=== PATIENT | male | born 1935 | race Caucasian/White ===

== ENCOUNTER 2016-10-14 13:12 | Emergency (ER) | payer MEDICARE, MEDICAID ==
[~2016-10-14] VITALS: Ht 177.8 cm; Wt 73.0 kg
[~2016-10-14 13:12] MED LIST: ASPI-1073 PO; CARV6.2548 PO; CLOP75TA33 PO; GLV25 PO; HYDROMORPHONE; LISI10TA5 PO; METAMUCIL PO; SIMV40TA5 PO; [UNRECOGNIZED DRUG - CODE] PO
[2016-10-14 13:37] VITALS: BP 165/69
== END 2016-10-14 14:35 | disposition home or self-care (01) ==
LOC: ER 13:48
DX: S00.412A Abrasion of left ear, initial encounter (principal); Z79.899 Other long term (current) drug therapy; Z79.82 Long term (current) use of aspirin; E78.00 Pure hypercholesterolemia, unspecified; I10 Essential (primary) hypertension; Z87.891 Personal history of nicotine dependence; W22.8XXA Striking against or struck by other objects, initial encounter; Y93.89 Activity, other specified; Y99.9 Unspecified external cause status; Y92.89 Other specified places as the place of occurrence of the external cause
CPT/HCPCS: 99281; 99283

== ENCOUNTER 2022-04-26 16:08 | Inpatient (IN) | payer MEDICARE, MEDICAID ==
[~2022-04-26] VITALS: Ht 165.1 cm; Wt 68.0 kg
[~2022-04-26 16:08] MED LIST changes: -ASPI-1073 PO; +ASPI-1497 PO; +ATOR-2 PO; -CLOP75TA33 PO; +GABA-532 PO; -GLV25 PO; -HYDROMORPHONE; +INSU300I SQ; +LISI10TA26 PO; -LISI10TA5 PO; -METAMUCIL PO; +METF-416 PO; -SIMV40TA5 PO; +TICA90TA PO; -[UNRECOGNIZED DRUG - CODE] PO
[2022-04-26] MEDS ORDERED: ONDANSETRON HCL 4MG/2ML INJ IV ONE (22:30)
[2022-04-26 23:12] LABS: BASOPHILS % 0.4 % (0.0-2.0); EOSINOPHILS % 1.1 % (0.0-5.0); HEMATOCRIT. 28.2 % (42.0-52.0); HEMOGLOBIN. 9.5 g/dL (14.0-18.0); LYMPHOCYTES % 16.8 % (20.0-50.0); MEAN CORPUSCULAR HEMOGLOBIN 29.5 pg (28.0-32.0); MEAN CORPUSCULAR VOLUME 87.7 fL (80.0-94.0); MEAN PLATELET VOLUME 7.7 fl (7.4-10.4); MONOCYTES % 7.2 % (2.0-8.0); NEUTROPHILS % 74.5 % (40.0-76.0); PLATELET 247 x1000/uL (130-400); RED BLOOD CELL COUNT 3.21 mill/uL (4.7-6.1); RED CELL DISTRIBUTION WIDTH 13.7 % (11.6-14.6)
[2022-04-26] MEDS ORDERED: MAGNESIUM/ALUMINUM HYDROXIDE/SIMETHICONE 30ML UDC PO ONE (23:15)
[2022-04-26 23:37] LABS: CHLORIDE 106 mEq/L (98-107); ETHANOL BLOOD < 10 mg/dL
[2022-04-27] MEDS: ACETAMINOPHEN 325MG TABLET PO NR ×2 (00:02→01:46)
[2022-04-27] MEDS ORDERED: AMOXICILLIN/POTASSIUM CLAVULANATE 875/125MG TAB PO NR (00:45)
[2022-04-27] MEDS ORDERED: CEFTRIAXONE 1 G PREMIX 50 ML IV NR (00:45)
[2022-04-27] MEDS ORDERED: SODIUM CHLORIDE 0.9% 1,000 ML IV ONE (01:15)
[2022-04-27] MEDS ORDERED: ONDANSETRON HCL 4MG/2ML INJ IV PRN (05:00)
[2022-04-27] MEDS ORDERED: ACETAMINOPHEN 325MG TABLET PO PRN (05:00)
[2022-04-27] MEDS ORDERED: DEXTROSE 50% WATER 50ML SYRINGE IV PRN (05:00)
[2022-04-27] MEDS ORDERED: CEFTRIAXONE 1 G PREMIX 50 ML IV SCH (05:00)
[2022-04-27] MEDS ORDERED: SODIUM CHLORIDE 0.9% 1,000 ML IV SCH (05:00)
[2022-04-27 05:25] VITALS: BP 147/47
[2022-04-27] MEDS ORDERED: CARV12.545 MT (05:46)
[2022-04-27] MEDS ORDERED: AMLO5TAB88 PO (05:50)
[2022-04-27] MEDS ORDERED: ATOR40TA70 PO (05:50)
[2022-04-27] MEDS ORDERED: GABA-532 PO (05:50)
[2022-04-27] MEDS ORDERED: FERR325T6 MT (05:50)
[2022-04-27] MEDS ORDERED: TAMS-11 PO (05:50)
[2022-04-27] MEDS: GABAPENTIN 300MG CAPSULE PO SCH ×3 (06:34→21:10)
[2022-04-27] MEDS: BLOOD SUGAR DIAGNOSTIC STRIP TEST SCH ×4 (06:37→20:17)
[2022-04-27 08:00] VITALS: BP 125/47
[2022-04-27] MEDS ORDERED: AMOXICILLIN/POTASSIUM CLAVULANATE 875/125MG TAB PO SCH (09:00)
[2022-04-27] MEDS: CARVEDILOL 12.5MG TABLET PO SCH ×3 (09:00→20:14)
[2022-04-27] MEDS: AMLODIPINE 5MG TABLET PO SCH ×2 (09:00→09:07)
[2022-04-27] MEDS: FERROUS SULFATE 325MG TABLET PO SCH (09:05)
[2022-04-27] MEDS: FOLIC ACID/VITAMIN B COMP W-C TABLET PO SCH (09:05)
[2022-04-27] MEDS: ASPIRIN 81MG TABLET PO SCH (09:05)
[2022-04-27] MEDS: LISINOPRIL 20MG TABLET PO SCH ×2 (09:08→18:18)
[2022-04-27] MEDS: INSULIN LISPRO 100 UNITS/ML SUBCUT SCH ×4 (09:10→20:16)
[2022-04-27 12:00] VITALS: BP 146/43
[2022-04-27 16:00] VITALS: BP 156/41
[2022-04-27] MEDS ORDERED: AZITHROMYCIN 500MG in DEXTROSE 5% WATER 250ML IV SCH (16:00)
[2022-04-27 20:00] VITALS: BP 143/46
[2022-04-27] MEDS: TAMSULOSIN HCL 0.4MG SR CAPSULE PO SCH (20:14)
[2022-04-27] MEDS: ATORVASTATIN CALCIUM 40MG TABLET PO SCH (20:14)
[2022-04-28] VITALS: BP 99/45
[2022-04-28] MEDS: CEFTRIAXONE 1,000 MG in DEXTROSE 5% WATER 50 ML IV SCH (01:03)
[2022-04-28 04:00] VITALS: BP 130/44
[2022-04-28] MEDS: BLOOD SUGAR DIAGNOSTIC STRIP TEST SCH ×4 (05:39→21:31)
[2022-04-28] MEDS: GABAPENTIN 300MG CAPSULE PO SCH ×3 (05:39→21:28)
[2022-04-28 08:00] VITALS: BP 165/41
[2022-04-28] MEDS: FOLIC ACID/VITAMIN B COMP W-C TABLET PO SCH (08:14)
[2022-04-28] MEDS: ASPIRIN 81MG TABLET PO SCH (08:14)
[2022-04-28] MEDS: CARVEDILOL 12.5MG TABLET PO SCH ×2 (08:14→21:25)
[2022-04-28] MEDS: FERROUS SULFATE 325MG TABLET PO SCH (08:14)
[2022-04-28] MEDS: INSULIN LISPRO 100 UNITS/ML SUBCUT SCH ×4 (08:15→21:25)
[2022-04-28] MEDS: LISINOPRIL 20MG TABLET PO SCH ×2 (08:15→17:55)
[2022-04-28] MEDS: AMLODIPINE 5MG TABLET PO SCH (08:15)
[2022-04-28 12:00] VITALS: BP 148/38
[2022-04-28] MEDS: AZITHROMYCIN 500 MG TABLET PO SCH (13:45)
[2022-04-28 15:55] VITALS: BP 133/37
[2022-04-28 19:54] VITALS: BP 158/44
[2022-04-28] MEDS: ATORVASTATIN CALCIUM 40MG TABLET PO SCH (21:25)
[2022-04-28] MEDS: TAMSULOSIN HCL 0.4MG SR CAPSULE PO SCH (21:25)
[2022-04-29 00:43] VITALS: BP 135/98
[2022-04-29] MEDS: CEFTRIAXONE 1,000 MG in DEXTROSE 5% WATER 50 ML IV SCH (01:00)
[2022-04-29 04:00] VITALS: BP 144/106
[2022-04-29 05:05] VITALS: BP 144/106
[2022-04-29] MEDS: GABAPENTIN 300MG CAPSULE PO SCH (06:06)
[2022-04-29] MEDS: BLOOD SUGAR DIAGNOSTIC STRIP TEST SCH (06:37)
[2022-04-29 08:00] VITALS: BP 15/56
[2022-04-29] MEDS: ASPIRIN 81MG TABLET PO SCH (09:13)
[2022-04-29] MEDS: CARVEDILOL 12.5MG TABLET PO SCH (09:13)
[2022-04-29] MEDS: FERROUS SULFATE 325MG TABLET PO SCH (09:13)
[2022-04-29] MEDS: AZITHROMYCIN 500 MG TABLET PO SCH (09:13)
[2022-04-29] MEDS: LISINOPRIL 20MG TABLET PO SCH (09:13)
[2022-04-29] MEDS: FOLIC ACID/VITAMIN B COMP W-C TABLET PO SCH (09:13)
[2022-04-29] MEDS: INSULIN LISPRO 100 UNITS/ML SUBCUT SCH (09:15)
[2022-04-29] MEDS: AMLODIPINE 5MG TABLET PO SCH (09:17)
[2022-04-29] MEDS ORDERED: LACTULOSE 20G/30ML UDC PO NR (09:30)
[2022-04-29 10:42] VITALS: BP 158/56
[2022-04-29 15:27] LABS: CLARITY URINE CLEAR (CLEAR); COLOR URINE YELLOW (YELLOW); KETONES URINE NEGATIVE (NEGATIVE); LEUKOCYTE ESTERASE URINE NEGATIVE (NEGATIVE); NITRITE URINE NEGATIVE (NEGATIVE); OCCULT BLOOD URINE NEGATIVE (NEGATIVE); PROTEIN URINE 1+ (NEGATIVE); SPECIFIC GRAVITY URINE 1.016 (1.005-1.030); UROBILINOGEN URINE 0.2 E.U./dL (0.2-1.0)
== END 2022-04-29 11:58 | disposition home or self-care (01) | DRG 871 ==
LOC: ER 16:08 → MICUSO 04-27 01:11 → EDBEDREQ 04-27 01:15 → EDBEDREQTM 04-27 01:15 → 6WST 04-27 03:25
PROVIDERS: ADMIT Internal Medicine; ATTEND Internal Medicine
DX: A41.9 Sepsis, unspecified organism (principal); J18.9 Pneumonia, unspecified organism; J44.0 Chronic obstructive pulmonary disease with (acute) lower respiratory infection; E11.51 Type 2 diabetes mellitus with diabetic peripheral angiopathy without gangrene; D64.9 Anemia, unspecified; Z20.822 Contact with and (suspected) exposure to COVID-19; I11.0 Hypertensive heart disease with heart failure; I25.10 Atherosclerotic heart disease of native coronary artery without angina pectoris; K52.9 Noninfective gastroenteritis and colitis, unspecified; I50.9 Heart failure, unspecified; F03.90 Unspecified dementia, unspecified severity, without behavioral disturbance, psychotic disturbance, mood disturbance, and anxiety; E78.00 Pure hypercholesterolemia, unspecified; N40.0 Benign prostatic hyperplasia without lower urinary tract symptoms; J44.9 Chronic obstructive pulmonary disease, unspecified; K57.90 Diverticulosis of intestine, part unspecified, without perforation or abscess without bleeding; M17.0 Bilateral primary osteoarthritis of knee; H91.93 Unspecified hearing loss, bilateral; G89.29 Other chronic pain; I25.2 Old myocardial infarction; Z95.1 Presence of aortocoronary bypass graft; Z86.73 Personal history of transient ischemic attack (TIA), and cerebral infarction without residual deficits; Z95.820 Peripheral vascular angioplasty status with implants and grafts
CPT/HCPCS: 36415; 71045; 74018; 74176; 80053; 80320; 81003; 82962; 83036; 83605; 85025; 87426; 87804; 93306; 93970; 99291; C9803; J0456; J0696; J1815; J2405; J7030; J7060; G0480